=== PATIENT | male | born 1990 | race Caucasian/White ===

== ENCOUNTER 2021-11-29 13:14 | Emergency (ER) | payer OTHER, SELFPAY ==
--- NOTE | ~2021-11-29 | XR_ITS ---
EXAMINATION: XR FOOT, LEFT CLINICAL INFORMATION: Left foot pain with no known injury. COMPARISON: None TECHNIQUE: AP, lateral, and oblique views of the left foot. FINDINGS: Medial soft tissue swelling is identified. Alignment is normal. No joint space narrowing, fracture or dislocation or acute osseous abnormality is seen. XR/XR foot LT min 3V IMPRESSION: Mild soft tissue swelling. No fracture or dislocation identified.
[2021-11-29 14:00] VITALS: BP 163/104; PULSE 87; RESP 18; TEMP 36.7; O2SAT 98; BMI 34.7
--- NOTE | 2021-11-29 14:37 | ED.GENADULT ---
HPI - General Adult General Chief complaint: General Medical Stated complaint: L foot pain Time Seen by Provider: 11/29/21 14:37 History of Present Illness HPI narrative: Patient complains of left foot pain without injury for about 10 days, similar to prior episodes prior episodes have included pain redness and swelling around the 1st metatarsal the ankle and the top of the foot He has had no fever no chills and at this time there are no other joint swollen Related Data Previous Rx's Medication Instructions Recorded ibuprofen 800 mg tablet 800 mg PO Q8H PRN #20 tab 11/29/21 oxycodone 5 mg tablet 5 mg PO Q6H PRN #14 tab 11/29/21 prednisone 20 mg tablet 60 mg PO DAILY 4 Days #12 tab 11/29/21 Allergies Allergy/AdvReac Type Severity Reaction Status Date / Time No Known Allergies Allergy Verified 11/29/21 13:59 Review of Systems Review of Systems: Positive for left foot pain Negatives no fever no chills no dizziness no weakness no headache no neck pain no back pain no chest pain no shortness of breath no radiating pain no numbness weakness or tingling no other joint swollen now no skin rash Yes all other systems are reviewed and are negative PMFSH Past Medical History Source: nursing notes reviewed Medical History (Updated 11/30/21 @ 00:01 by Harpreet Simon) No known health problems Physical Exam ED Vital Signs: Vital Signs - 24 hr 11/29/21 14:00 Temperature 98.1 F Pulse Rate 87 Respiratory Rate 18 Blood Pressure 163/104 H Pulse Oximetry 98 BMI result Body Mass Index 34.7 General appearance no acute distress, comfortable Head is normocephalic atraumatic Neck is supple Respiratory no distress Extremities is full range of motion x4 The left dorsal foot is tender to the touch it is not red but it is mildly swollen, the skin is intact and it is neurovascular intact distal, he is ambulating with a limp Other extremities are normal Neuro no focal deficits Course Course Course Narrative: Patient with a history of intermittent pain swelling and sometimes redness in feet ankle and 1st MTP joints comes today with foot pain It is possible it is gout so I treated with prednisone there was no sign of infection all joints were fully mobile no sign of any septic joint and he is recommended to follow with a primary care doctor His high blood pressure was noticed and he is advised again to seek primary care to evaluate for hypertension and to get a home blood pressure cuff and keep a record of it Medical Decision Making Lab Data Labs: Lab Results 11/29/21 Range/Units 14:51 POC Glucose 128 H (60-115) mg/dL Discharge Plan Discharge Clinical Impression: Gout, Elevated blood pressure reading, Foot pain, left Patient Disposition: Home, Self-Care Additional Instructions: There is no sign of infection in the foot Your fingerstick for diabetes was normal The description of the pain in her foot is likely what they call gout which is periodic inflammation We are treating with prednisone and ibuprofen which are anti inflammatories, and oxycodone if needed for pain Her blood pressure was elevated so you may have high blood pressure Best plan is to get a home blood pressure cuff and take readings twice a day when you are relaxed and keep a record of it and get a primary care doctor in follow with the primary care doctor for evaluation for high blood pressure Return to the ER any time any worse condition or any concerns Prescriptions: New prednisone 20 mg tablet 60 mg PO DAILY 4 Days Qty: 12 0RF ibuprofen 800 mg tablet 800 mg PO Q8H PRN (Reason: pain) Qty: 20 0RF oxycodone 5 mg tablet 5 mg PO Q6H PRN (Reason: pain) Qty: 14 0RF Rx Instructions: Narcotic, no driving for 6 hours after taking this medication Stand Alone Forms: Work/School Release Interventions: ED Discharge Assessment Last Done: 11/29/21 16:41 Discharge Date/Time: 11/29/21 16:43
[2021-11-29 14:55] LABS: Glucose, Whole Blood 128 mg/dL (60-115)
[2021-11-29] MEDS: Ibuprofen 800 MG TABLET PO (16:27)
[2021-11-29] MEDS: predniSONE 20 MG TABLET 60 MG PO (16:27)
[2021-11-29 16:31] VITALS: BP 163/99; PULSE 83; RESP 18; TEMP 37; O2SAT 97
== END 2021-11-29 16:43 | disposition home or self-care (01) ==
PROVIDERS: Emergency Provider Emergency Medicine Emergency Medical Services
DX: M10.9 Gout, unspecified (principal); M79.672 Pain in left foot; I10 Essential (primary) hypertension; Z79.899 Other long term (current) drug therapy
CPT/HCPCS: 73630; 82947; 99284

== ENCOUNTER 2022-04-29 10:41 | Outpatient (REF) | payer OTHER, SELFPAY ==
[2022-04-29 13:53] LABS: Hematocrit 43.9 % (42.0-52.0); Hemoglobin 14.1 g/dl (14.0-18.0); Mean Corpuscular HGB Conc 32.1 g/dl (31.0-36.0); Mean Corpuscular Hemoglobin 28.8 pg (27.0-33.0); Mean Corpuscular Volume 89.6 fL (80.0-98.0); Mean Platelet Volume 11.4 fL (9.4-12.4); Platelet Count 328 X10*3/uL (160-400); Red Cell Distribution Width 12.8 % (11.0-16.0); White Blood Count 9.7 X10*3/uL (4.8-10.8)
[2022-04-29 13:58] LABS: Estimated Average Glucose 117 mg/dL; Hemoglobin A1c % 5.7 %
[2022-04-29 14:06] LABS: Alanine Aminotransferase 50 U/L (0-40); Albumin Level 4.9 g/dL (3.5-5.0); Alkaline Phosphatase 79 U/L (39-117); Anion Gap 13 (12-20); Aspartate Amino Transferase 35 U/L (5-37); Bilirubin Total 0.8 mg/dL (0.0-1.0); Blood Urea Nitrogen 11 mg/dL (9-16); Calcium 9.9 mg/dL (8.4-10.2); Carbon Dioxide 27 mmol/L (22-29); Chloride 104 mmol/L (96-108); Cholesterol 212 mg/dL; Estimated Glomerular Filt Rate > 60; Glucose Fasting 100 mg/dL (60-99); HDL Cholesterol 30 mg/dL; LDL Cholesterol Calculated 128 mg/dl; Potassium 4.4 mmol/L (3.3-5.1); Sodium 140 mmol/L (135-145); Total Protein 8.3 g/dL (6.5-8.0); Triglycerides 273 mg/dL
[2022-04-29 14:31] LABS: Appearance Urine CLEAR; Color Urine YELLOW; Glucose Urine UA NEG (NEG); Leukocyte Esterase Urine NEG (NEG); Nitrite Urine NEG (NEG); PH 6.5 (5.0-8.0); Urine Blood NEG (NEG); Urine Ketones NEG (NEG); Urine Protein NEG (NEG-TRACE)
[2022-04-29 20:00] LABS: RBC Urine 0 /HPF (0); Renal Epithelial Cells Urine TRACE /LPF; Squamous Epithelial Cell Urine TRACE /LPF; WBC Urine 0 /HPF (0-4)
== END 2022-04-29 10:42 | disposition home or self-care (01) ==
LOC: HO.HMGCLDS 10:41
PROVIDERS: Visit Provider Internal Medicine
DX: E66.3 Overweight (principal); I10 Essential (primary) hypertension; R73.9 Hyperglycemia, unspecified; Z78.9 Other specified health status
CPT/HCPCS: 36415; 80053; 80061; 81001; 83036; 84443; 85027